=== PATIENT | female | born 1965 | race Caucasian/White ===

== ENCOUNTER 2021-08-24 00:32 | Observation (INO) | payer OTHER ==
[~2021-08-24] VITALS: Ht 165.1 cm; Wt 68.0 kg
[2021-08-24 00:51] LABS: HEMATOCRIT 46.9 % (37.0-47.0); HEMOGLOBIN 15.9 g/dl (12.0-16.0); IMMATURE GRANULOCYTES 0.5 % (0.0-5.0); MEAN CELL VOLUME 107.8 fL CALC (80.0-100.0); MEAN CORPUSCULAR HGB 36.6 pG CALC (26.0-32.0); MEAN CORPUSCULAR HGB CONC 33.9 g/dL CAL (32.0-36.0); NEUT# 4.74 thou/uL (2.00-7.15); RED BLOOD COUNT 4.35 mill/uL (4.20-5.60); RED CELL DISTRI WIDTH 12.5 % (11.5-15.5)
[2021-08-24 01:09] LABS: ACT PARTIAL THROMBO TIME 25.5 SECONDS (20.0-32.5); ALBUMIN 4.3 g/dL (3.2-5.0); ALKALINE PHOSPHATASE 76 u/l (38-126); AMYLASE 90 u/l (30-110); ANION GAP 13 (6-22 (CALC)); BILIRUBIN, TOTAL 0.2 mg/dL (0.0-1.4); BUN 12 mg/dL (7-17); BUN/CREATININE RATIO 17 (12-20 (CALC)); CARBON DIOXIDE 22 mmol/l (22-30); CHLORIDE 111 mmol/l (95-108); CREATININE 0.7 mg/dL (0.5-1.0); ETHYL ALCOHOL 285 mg/dl (0-30); GFR > 60 ML/MIN (>=60 (CALC)); GFR FOR AFR.AMER. > 60 ML/MIN (>=60 (CALC)); INTERNATIONAL NORMALIZED RATIO 0.9 RATIO (0.7-1.3); LIPASE 219 u/l (23-300); POTASSIUM 4.3 mmol/l (3.5-5.1); PROTHROMBIN TIME 9.3 SECONDS (9.0-12.5); SGOT/AST 43 u/l (14-36); SODIUM 141 mmol/l (137-146); TOTAL PROTEIN 6.7 g/dL (6.3-8.2)
[2021-08-24 01:09] LABS: URINE BILIRUBIN - DIPSTICK NEGATIVE (NEGATIVE); URINE BLOOD DIPSTICK NEGATIVE (NEGATIVE); URINE COLOR YELLOW; URINE GLUCOSE - DIPSTICK NEGATIVE (NEGATIVE); URINE KETONE NEGATIVE (NEGATIVE); URINE LEUK ESTERASE NEGATIVE (NEGATIVE); URINE NITRITE - DIPSTICK NEGATIVE (Negative); URINE PH 5.5 (4.5-8.0); URINE PROTEIN - DIPSTICK NEGATIVE (NEG-TRACE); URINE SPECIFIC GRAVITY <=1.005; URINE UROBILINOGEN - DIPSTICK 0.2 E.U./dL (0.2)
[2021-08-24 01:16] LABS: MYOGLOBIN 14 ng/mL (0 - 62)
[2021-08-24 01:18] LABS: D-DIMER 0.24 mg/L (0.19-0.60)
[2021-08-24 02:38] VITALS: BP 102/56
[2021-08-24 08:00] VITALS: BP 113/48
[2021-08-24] MEDS ORDERED: ADULT ASPIRIN R81 MG PO (10:22)
[2021-08-24] MEDS ORDERED: LOSARTAN POTASS50 MG PO (10:22)
[2021-08-24] MEDS ORDERED: CALCIUM + D PO (10:23)
[2021-08-24] MEDS ORDERED: METOPROL TAR25 MG PO (10:29)
[2021-08-24] MEDS ORDERED: CRESTOR5 MG PO (10:29)
[2021-08-24 10:35] VITALS: BP 113/62
== END 2021-08-24 13:00 | disposition home or self-care (01) | DRG 313 ==
LOC: ED 00:32 → ED-I 01:15 → ED 01:52 → MS2 01:53
PROVIDERS: Family Medicine; ADMIT Internal Medicine; ATTEND Internal Medicine
DX: R07.9 Chest pain, unspecified (principal); F10.129 Alcohol abuse with intoxication, unspecified; I10 Essential (primary) hypertension; E78.5 Hyperlipidemia, unspecified; F17.210 Nicotine dependence, cigarettes, uncomplicated; Z82.49 Family history of ischemic heart disease and other diseases of the circulatory system; Z20.822 Contact with and (suspected) exposure to COVID-19
CPT/HCPCS: G0378; J1650